=== PATIENT | male | born 1980 | race American Indian/Alaskan Native ===

== ENCOUNTER 2020-02-15 10:48 | Emergency (ER) | payer BC ==
[2020-02-15 11:22] VITALS: BP 156/118
[2020-02-15] MEDS ORDERED: oxyCODONE /ACETAMINOPHEN 5-325MG TAB PO ONE (12:26)
--- NOTE | 2020-02-15 12:37 | Emergency Department Report ---
ED Back Pain/Injury HPI - General Chief Complaint: Back Pain/Injury Stated Complaint: LOWER BACK/LFT SIDE PAIN Time Seen by Provider: 02/15/20 12:18 Source: patient Limitations: No Limitations - History of Present Illness Initial Comments: 39-year-old F German male presents emerged department complaining of pain to his lower back radiates across his lower back and rate and goes to his left hip and down his leg which started after he was leaning over in the yard trying to remove large amounts of mulch in a flower bed. 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 Reports no saddle paresthesia no loss of bowel or bladder no dysuria no no no hematuria no fever chills or sweats. States he was seen at his primary care provider 2 days ago who did obtain a urinalysis but states that his urinalysis and labs were all normal and his symptoms have not improved since that visit but he is not been taking any medication or doing any recovery type therapies. MD Complaint: back pain Similar Symptoms Previously: No Place: home, work Radiation: none, left leg Severity: mild - Related Data Previous Rx's Medication Instructions Recorded Last Taken Type methOCARBAMOL [Robaxin] 750 mg PO Q8H PRN #21 tablet 02/15/20 Unknown Rx predniSONE [Deltasone] 50 mg PO QDAY #5 tab 02/15/20 Unknown Rx traMADoL [Ultram] 50 mg PO Q6HR PRN #10 tablet 02/15/20 Unknown Rx Allergies Allergy/AdvReac Type Severity Reaction Status Date / Time No Known Allergies Allergy Unverified 02/15/20 11:18 ED Review of Systems ROS: Stated complaint: LOWER BACK/LFT SIDE PAIN Other details as noted in HPI Comment: All other systems reviewed and negative ED Past Medical Hx - Past Medical History Previous Medical History?: Yes Hx Hypertension: Yes (non compliance with meds) - Surgical History Past Surgical History?: No - Medications Home Medications: Home Medications Medication Instructions Recorded Confirmed Last Taken Type methOCARBAMOL [Robaxin] 750 mg PO Q8H PRN #21 tablet 02/15/20 Unknown Rx predniSONE [Deltasone] 50 mg PO QDAY #5 tab 02/15/20 Unknown Rx traMADoL [Ultram] 50 mg PO Q6HR PRN #10 tablet 02/15/20 Unknown Rx ED Physical Exam - General Limitations: No Limitations General appearance: alert, in no apparent distress - Head Head exam: Present: atraumatic, normocephalic - Eye Eye exam: Present: normal appearance, PERRL, EOMI Pupils: Present: normal accommodation - ENT ENT exam: Present: normal exam, mucous membranes moist - Neck Neck exam: Present: normal inspection - Respiratory Respiratory exam: Present: normal lung sounds bilaterally. Absent: respiratory distress - Cardiovascular Cardiovascular Exam: Present: regular rate, normal rhythm. Absent: systolic murmur, diastolic murmur, rubs, gallop - GI/Abdominal GI/Abdominal exam: Present: soft, normal bowel sounds - Rectal Rectal exam: Present: deferred - Extremities Exam Extremities exam: Present: normal inspection - Back Exam Back exam: Present: normal inspection, CVA tenderness (R), paraspinal tenderness, other (Tenderness to the left sacroiliac joint). Absent: CVA tenderness (L) - Neurological Exam Neurological exam: Present: alert, oriented X3, CN II-XII intact - Psychiatric Psychiatric exam: Present: normal affect, normal mood - Skin Skin exam: Present: warm, dry, intact, normal color. Absent: rash ED Course Vital Signs 02/15/20 11:19 Temperature 99.8 F H Pulse Rate 84 Respiratory 18 Rate Blood Pressure 156/118 O2 Sat by Pulse 97 Oximetry ED Medical Decision Making - Medical Decision Making Pt presents the emergency department complaining of back pain most consistent with sacroiliitis back Pain Most Consistent with Strain/Contusion. Differential Diagnosis Includes Lumbar Go Versus Musculoskeletal Spasm, Strain Versus Sciatica. No Back Pain Red Flags on History or Physical. Presentation Not Consistent with Malignancy, Fracture, Cauda Equina, Abdominal Aortic Aneurysm, Viscus Perforation, Pulmonary Embolism, Renal Colic, Pyelonephritis. Patient reports no B symptoms, trauma trauma, incontinence, saddle anesthesia, distal weakness, urinary symptoms and is a febrile. Critical care attestation.: If time is entered above; I have spent that time in minutes in the direct care of this critically ill patient, excluding procedure time. ED Disposition Clinical Impression: Lumbago with sciatica, left side Disposition: TO HOME OR SELFCARE Is pt being admited?: No Does the pt Need Aspirin: No Condition: Stable Instructions: Radicular Pain, Sacroiliac Joint Dysfunction, Lumbosacral Strain, Sacroiliac Joint Injection, Care After, Sacroiliac Joint Injection Prescriptions: predniSONE [Deltasone] 50 mg PO QDAY #5 tab methOCARBAMOL [Robaxin] 750 mg PO Q8H PRN #21 tablet PRN Reason: Spasms traMADoL [Ultram] 50 mg PO Q6HR PRN #10 tablet PRN Reason: Pain Referrals: [facility] [Provider Group] - 3-5 Days NAMAN VICENTE MD [Staff Physician] - 3-5 Days Forms: Work/School Release Form(ED)
== END 2020-02-15 13:25 | disposition home or self-care (01) ==
LOC: ED 10:48
DX: M54.42 Lumbago with sciatica, left side (principal); I10 Essential (primary) hypertension; Z79.899 Other long term (current) drug therapy
CPT/HCPCS: 99282

== ENCOUNTER 2020-10-11 04:24 | Emergency (ER) | payer BC ==
[2020-10-11 04:38] VITALS: BP 150/91
== END 2020-10-11 17:19 | disposition left against medical advice (07) ==
LOC: ED 04:24
DX: R68.81 Early satiety (principal); Z53.21 Procedure and treatment not carried out due to patient leaving prior to being seen by health care provider

== ENCOUNTER 2020-10-11 13:39 | Emergency (ER) | payer BC ==
[2020-10-11 15:31] VITALS: BP 123/82
== END 2020-10-11 18:07 | disposition home or self-care (01) ==
LOC: ED 13:39
DX: Z20.822 Contact with and (suspected) exposure to COVID-19 (principal); R09.81 Nasal congestion; I10 Essential (primary) hypertension
CPT/HCPCS: 71046; 99283